=== PATIENT | female | born 1990 | race Caucasian/White ===

== ENCOUNTER 2019-11-13 08:34 | Emergency (ER) | payer BC, SELFPAY ==
[2019-11-13 08:53] VITALS: BP 120/89; PULSE 118; RESP 16; TEMP 36.8; O2SAT 99
--- NOTE | 2019-11-13 08:57 | ED.GENADULT ---
HPI - General Adult General Chief complaint: Skin/Abscess/Foreign Body Stated complaint: unspecified Time Seen by Provider: 11/13/19 08:57 Source: patient Mode of arrival: ambulatory Limitations: no limitations History of Present Illness HPI narrative: 29-year-old female patient presents to the [facility] with complaints of right hand pain. Patient states that she shot ice about 2 days ago and states that she thinks she might have missed the vein and since then it has been getting red, hot, painful and swelling. Patient denies any fevers, body aches or chills. Patient states she is predominant but denies using any type of antibiotic ointment on it. Related Data Home Medications Medication Instructions Recorded Confirmed No Home Medications 11/13/19 11/13/19 Allergies Allergy/AdvReac Type Severity Reaction Status Date / Time No Known Allergies Allergy Verified 11/13/19 09:04 Review of Systems Review of Systems: Narrative: CONSTITUTIONAL: Denies fever, chills, or sweats. EYES: Denies visual changes, redness, or discharge. ENT: Denies rhinorrhea, congestion, sore throat, or otalgia. CARDIOVASCULAR: Denies chest pain, palpitations, or edema. RESPIRATORY: Denies cough or dyspnea. GASTROINTESTINAL: Denies abdominal pain, nausea, vomiting, or diarrhea. GENITOURINARY: Denies dysuria or hematuria. SKIN: Denies rash or itching. Positive redness, swelling and warmth to right hand x2 days MUSCULOSKELETAL: Denies back pain, joint pain, or myalgia. NEUROLOGIC: Denies headache, numbness, or weakness. PSYCHIATRIC: Denies anxiety or depression. [facility] Past Medical History Medical History (Updated 11/13/19 @ 09:04 by ANDRÉS Garza) Methamphetamine use Polysubstance abuse Social History Social History Gender identity (if verbalized by the patient): Female Comments At the time of my signature I agree with nursing past medical history, surgical, social, and family history. There is no relevant family history pertinent to the presenting complaint. Exam Narrative: Exam Narrative: GENERAL: Well-appearing, well-nourished, and in no acute distress. HEAD: Normocephalic, atraumatic. EYES: PERRLA and EOMI. ENT: Nares clear, no rhinorrhea or epistaxis. Mucous membranes moist. NECK: Supple. No lymphadenopathy CHEST: Clear to auscultation. No respiratory distress. HEART: Regular rate and rhythm. No murmur heard. Normal peripheral pulses. ABDOMEN: Soft, nontender, nondistended, normal active bowel sounds. EXTREMITIES: Normal range of motion. No edema. SKIN: Warm, dry, no rash. Patient has an injection joyce to the right dorsal hand around the area of the third fourth and fifth metacarpals. The injection site measuring approximately 0.5 cm. The redness measuring approximately 6.5 x 5.5. There is swelling noted to the area. There is no streaking noted up the arm. The wound is warm to the touch. NEURO: No focal deficits. Alert and oriented x3. Course Vital Signs Vital signs: Vital Signs Temperature 36.8 C 11/13/19 08:53 Pulse Rate 118 H 11/13/19 08:53 Respiratory Rate 16 11/13/19 08:53 Blood Pressure 120/89 11/13/19 08:53 Pulse Oximetry 99 11/13/19 08:53 Temperature 36.8 C 11/13/19 08:53 Pulse Rate 118 H 11/13/19 08:53 Respiratory Rate 16 11/13/19 08:53 Blood Pressure 120/89 11/13/19 08:53 Pulse Oximetry 99 11/13/19 08:53 Vital signs reviewed. Medical Decision Making Differential Diagnosis Differential Diagnosis: Differential diagnosis: Abscess, cellulitis, hidradenitis, laceration, puncture wound. Discussed with patient this does appear most likely a cellulitis infection to the hand from her IV drug use. Discussed with her that we will go ahead and discharge her home with some antibiotics and I encouraged her to clean the area with soap and water and apply antibiotic ointment to the injection site. Discussed with patient nilda
== END 2019-11-13 09:07 | disposition home or self-care (01) ==
PROVIDERS: Emergency Provider Nurse Practitioner Family
DX: L03.011 Cellulitis of right finger (principal); F15.20 Other stimulant dependence, uncomplicated; T80.29XA Infection following other infusion, transfusion and therapeutic injection, initial encounter
CPT/HCPCS: 99213; G0463